=== PATIENT | male | born 1970 | race Caucasian/White ===

== ENCOUNTER 2016-10-27 16:45 | Emergency (ER) | payer OTHER, BC ==
[2016-10-27 17:07] VITALS: BP 144/85
[2016-10-27] MEDS ORDERED: Sodium Chloride 0.9% 1,000 ML ONE (17:43)
--- NOTE | 2016-10-27 17:50 | EDM.PDOC ---
ED HPI EYE COMPLAINT - General Chief Complaint: Eye Problems Stated Complaint: foreign body in right eye Time Seen by Provider: 10/27/16 17:20 Source: Reports: Patient History Limitations: Reports: No limitations - History of Present Illness INITIAL COMMENTS - FREE TEXT/NARRATIVE: Patient presents to ER with concerns of a possible foreign object in his left eye. 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 He did flush his eye out at work. Has noted a blister forming in his eye now. Denies blurred vision. Eye does feel irritated, has gotten very red. Is tearing. Patient's last known tetanus was in 2007. Symptom Onset Date: 10/27/16 Location: left eye Quality: Reports: Burning Severity: mild Associated Symptoms (Eye): Reports: burning, eyelid redness, orbital redness, FB sensation. Denies: decreased/blurred EXTENSION FORESTER (EYE): eyewash/irrigation - Related Data Allergies/ADRs: Allergies hydrocodone Allergy (Verified 10/27/16 16:58) Cannot Remember metronidazole [From Flagyl] Allergy (Verified 10/27/16 16:58) Cannot Remember oxycodone [Oxycodone] Allergy (Verified 10/27/16 16:58) Cannot Remember prednisone Allergy (Verified 10/27/16 16:58) Cannot Remember Home Meds: Ambulatory Orders Medication Instructions Recorded Confirmed Ciprofloxacin HCl 500 mg PO DAILY 08/10/15 10/27/16 Venlafaxine [Effexor] 37.5 mg PO BID 08/10/15 10/27/16 Lisinopril 10 mg PO DAILY 06/21/16 10/27/16 Atenolol 25 mg PO BID 06/23/16 10/27/16 Cholecalciferol (Vitamin D3) 5,000 units PO DAILY 08/08/16 10/27/16 [Vitamin D3] Magnesium Oxide [Magnesium] 500 mg PO DAILY 08/08/16 10/27/16 Albuterol Sulfate [Proair Hfa] 2 puff INH QID PRN 10/12/16 10/27/16 Amoxicillin 1,000 mg PO BID 10/27/16 10/27/16 Clarithromycin 500 mg PO BID 10/27/16 10/27/16 Lansoprazole [Lansoprazole] 30 mg PO BID 10/27/16 10/27/16 Past Medical History Cardiovascular History: Reports: Hypertension Respiratory History: Reports: Asthma, Sleep apnea Gastrointestinal History: Reports: Other (see below) Other Gastrointestinal History: ULCERATIVE COLITIS Musculoskeletal History: Reports: Fracture Psychiatric History: Reports: Anxiety, Depression Endocrine/Metabolic History: Reports: Obesity/BMI 30+ Hematologic History: Reports: Blood transfusion(s) - Past Surgical History HEENT Surgical History: Reports: Naso-sinus surgery GI Surgical History: Reports: Appendectomy, Colonoscopy, Other (see below) Other GI Surgeries/Procedures: HX OF COLOSTOMY AFTER REMOVAL OF 4FT OF BOWEL Musculoskeletal Surgical History: Reports: Arthroscopic procedure Social & Family History - Family History Family Medical History: Noncontributory Other Oncologic Family History: Aunts on mothers side had cancer - Tobacco Use Smoking Status *Q: Never Smoker Packs/Tins Daily: 1 - Caffeine Use Caffeine Use: Reports: Coffee Caffeine Use Comment: 1 cup coffee per day - Alcohol Use Days Per Week of Alcohol Use: 2 Number of Drinks Per Day: 3 Total Drinks Per Week: 6 - Recreational Drug Use Recreational Drug Use: No ED ROS GENERAL - Review of Systems Review Of Systems: ROS reveals no pertinent complaints other than HPI. ED EXAM GENERAL W FULL EYE - Physical Exam Exam: See Below Exam Limited By: No limitations General Appearance: alert, WD/WN, no apparent distress Eye Exam: left eye: conjunctival injection, foreign body, bilateral eye: EOMI, PERRL, other (Patient has obvious blister from 3-6 o'clock on the cornea. Does not extend to the iris. ) Visual acuity (R) 20/: 20 Visual acuity (L) 20/: 40 With Correction: Yes Eyelids: bilateral: normal appearance Conjunctiva & Sclera: left: conjunctival edema, foreign body (removed with eye wash), injected Cornea Exam: left: examined with flourescein, other (corneal blister noted) Extraocular Movements: bilateral: intact Pupils: normal accommodation Pupillary Size: bilateral: 4 mm Pupillary Reaction: bilateral: brisk ED EYE w/ Add Procedure - Eye Procedure Alcaine Drops Administered: Yes Eye FB Removal: removal w/ cotton swab Antibiotic Oinment/Drps Admin: left eye Course - Vital Signs Last Recorded V/S: Last Vital Signs Temp 99.0 F 10/27/16 17:03 Pulse 78 10/27/16 17:03 Resp 16 10/27/16 17:03 BP 144/85 H 10/27/16 17:03 Pulse Ox 93 L 10/27/16 17:03 - Orders/Labs/Meds Orders: Active Orders 24 hr Category Date Time Status Vaccines to be Administered [RC] PER UNIT ROUTINE Care 10/27/16 18:02 Ordered Meds: Medications Discontinued Medications Generic Name Dose Route Start Last Admin Trade Name David PRN Reason Stop Dose Admin Diphtheria/Tetanus/Acell Pertussis 0.5 ml 10/27/16 18:02 10/27/16 18:06 Adacel IM 10/27/16 18:03 0.5 ml .ONCE ONE Administration Sodium Chloride Confirm 10/27/16 17:43 10/27/16 18:07 Normal Saline Administered 10/27/16 17:44 Not Given Dose 1,000 mls @ as directed .ROUTE .STK-MED ONE - Re-Assessments/Exams Free Text/Narrative Re-Assessment/Exam: 10/27/16 7132- Did contact [facility] about specific treatment for this blister. Recommended antibiotic ointment or drops without steroids and contact optometry. We did irrigate the eye out and flushed more discharge. Visual acuity intact. Was able to reach Dr. Govea. Recommended polymixin ointment for treatment. Departure - Departure Time of Disposition: 18:12 Disposition: Home, Self-Care 01 Condition: good Clinical Impression: Blister of left cornea Referrals: Eh Chance MD [Primary Care Provider] - Forms: ED Department Discharge Additional Instructions: 1. Wear protective eye wear 2. Sunglasses for increased sensitivity 3. Polymixin ointment three times a day 4. Follow up with Dr. Govea on Sunday if able - My Orders Last 24 Hours: My Active Orders 10/27/16 18:02 Vaccines to be Administered [RC] PER UNIT ROUTINE - Assessment/Plan Last 24 Hours: My Active Orders 10/27/16 18:02 Vaccines to be Administered [RC] PER UNIT ROUTINE
[2016-10-27] MEDS ORDERED: Diphtheria,Pertussis(Acell),Tetanus Vaccine 0.5 ML Syringe IM ONE (18:02)
== END 2016-10-27 18:25 | disposition home or self-care (01) ==
LOC: CC.ED 16:45
DX: S05.8X2A Other injuries of left eye and orbit, initial encounter (principal); I10 Essential (primary) hypertension; J45.909 Unspecified asthma, uncomplicated; F41.9 Anxiety disorder, unspecified; F32.9 Major depressive disorder, single episode, unspecified; E66.9 Obesity, unspecified; Z23 Encounter for immunization; Z90.49 Acquired absence of other specified parts of digestive tract; Z88.5 Allergy status to narcotic agent; Z88.8 Allergy status to other drugs, medicaments and biological substances
CPT/HCPCS: 65220; 90471; 90715; 99282

== ENCOUNTER → 2017-09-12 | Day surgery (SDC) | payer BC ==
[~2017-09-12] MED LIST: Acetaminophen 325 MG Tab PO PRN; Bupivacaine 0.25% 10 ML SDV INJECT ONE; Dexamethasone 4 MG/ML SDV IV ONE; Ketorolac 30 MG/ML SDV IVPUSH ONE; Lactated Ringers 1,000 ML IV SCH; Lidocaine 1% 30 ML SDV INJECT ONE; Midazolam 1 MG/ML 2 ML SDV IV ONE; Ondansetron 4 MG/2 ML SDV IV ONE; Propofol 200 MG/20 ML SDV IV ONE; ceFAZolin 1 GM Vial IVPUSH ONE; fentaNYL 100 MCG/2 ML SDV IV ONE
[2017-09-12 15:27] VITALS: BP 138/80
--- NOTE | 2017-09-13 06:49 | OR ---
DATE OF OPERATION: 09/12/2017 PREOPERATIVE DIAGNOSIS: MASS, RIGHT CHEST WALL. POSTOPERATIVE DIAGNOSIS: LIPOMA, RIGHT CHEST WALL. SURGEON: Varun Parkinson MD PROCEDURE: EXCISION OF LIPOMA, RIGHT CHEST WALL. ANESTHESIA: IV sedation and 1% Xylocaine with 0.25% Marcaine. The size of the lipoma is about 3 cm in size. DESCRIPTION OF PROCEDURE: After the patient's chest wall was prepped, the patient was given sterile drapes. A 0.25% Marcaine with 1% Xylocaine was infiltrated all around above the mass. Skin incision was made. All the bleeding points were cauterized. There was about a 3 cm lipoma which was dissected out. All the bleeding points were cauterized and the skin was approximated with 4-0 Vicryl subcuticular sutures. The patient was given sterile dressing. He tolerated the procedure well and left the operating room in satisfactory condition. WILLIAMS/TORI /[id number]
== END ==
LOC: CC.SDS 11:45
PROVIDERS: ATTEND Surgery
DX: D17.1 Benign lipomatous neoplasm of skin and subcutaneous tissue of trunk (principal); F41.9 Anxiety disorder, unspecified; J45.909 Unspecified asthma, uncomplicated; N40.1 Benign prostatic hyperplasia with lower urinary tract symptoms; R35.1 Nocturia; F32.9 Major depressive disorder, single episode, unspecified; I10 Essential (primary) hypertension; K21.9 Gastro-esophageal reflux disease without esophagitis; E78.5 Hyperlipidemia, unspecified; G47.30 Sleep apnea, unspecified; E55.9 Vitamin D deficiency, unspecified; Z88.8 Allergy status to other drugs, medicaments and biological substances; Z79.82 Long term (current) use of aspirin; Z79.899 Other long term (current) drug therapy; Z87.891 Personal history of nicotine dependence
CPT/HCPCS: 21552; J0690; J1100; J1885; J2250; J2405; J2704; J3010; J7120

== ENCOUNTER 2019-06-09 10:29 | Emergency (ER) | payer OTHER ==
[2019-06-09 10:57] LABS: CHLORIDE,CL 104 mEq/L (98-106); SODIUM,NA 143 mEq/L (136-145)
[2019-06-09] MEDS: methylPREDNISolone Acetate 80 MG/ML SDV IM ONE (11:55)
--- NOTE | 2019-06-09 12:04 | EDM.PDOC ---
ED HPI GENERAL MEDICAL PROBLEM - General Chief Complaint: Chest Pain Stated Complaint: ER Time Seen by Provider: 06/09/19 10:50 Source of Information: Reports: Patient History Limitations: Reports: No Limitations - History of Present Illness INITIAL COMMENTS - FREE TEXT/NARRATIVE: Melanie is a 49 year old male who presents ambulatory to ER with complaints of intermittent chest pain. States it feels like a poking sensation to left anterior chest since . Patient denies any SOB at present time, but does get SOB with activity. States he does have a productive cough with history of asthma. Patient denies any jaw, shoulder, neck or arm pain, dizziness or weakness. States since Sunday he has been really tired and sleeping a lot. Currently not having any discomfort. blood pressure has been elevated at home as well. Admits when he does get the discomfort he is usually at rest, does not worsen with exertion. Left Anterior Chest Pain Score (Numeric/FACES): 5 - Related Data Allergies Allergy/AdvReac Type Severity Reaction Status Date / Time hydrocodone Allergy Cannot Verified 06/09/19 10:51 Remember metronidazole [From Flagyl] Allergy Cannot Verified 06/09/19 10:51 Remember oxycodone [Oxycodone] Allergy Cannot Verified 06/09/19 10:51 Remember prednisone Allergy Cannot Verified 06/09/19 10:51 Remember Home Meds: Home Meds Ciprofloxacin HCl 500 mg PO DAILY 08/10/15 [History] Venlafaxine [Effexor] 37.5 mg PO BID 08/10/15 [History] Atenolol 12.5 mg PO BID 06/23/16 [History] Cholecalciferol (Vitamin D3) [Vitamin D3] 5,000 units PO DAILY 08/08/16 [History ] Magnesium Oxide [Magnesium] 500 mg PO DAILY 08/08/16 [History] Albuterol Sulfate [Proair Hfa] 2 puff INH QID PRN 10/12/16 [History] Aspirin [Halfprin] 81 mg PO DAILY 09/12/17 [History] Lisinopril 40 mg PO BID 09/12/17 [History] Past Medical History Cardiovascular History: Reports: Hypertension Respiratory History: Reports: Asthma, Sleep Apnea Gastrointestinal History: Reports: Other (See Below) Other Gastrointestinal History: ULCERATIVE COLITIS Musculoskeletal History: Reports: Fracture Psychiatric History: Reports: Anxiety, Depression Endocrine/Metabolic History: Reports: Obesity/BMI 30+ Hematologic History: Reports: Blood Transfusion(s) - Past Surgical History HEENT Surgical History: Reports: Naso-Sinus Surgery GI Surgical History: Reports: Appendectomy, Colon, Colonoscopy, Other (See Below ) Musculoskeletal Surgical History: Reports: Arthroscopic Procedure Social & Family History - Family History Family Medical History: Noncontributory Other Oncologic Family History: Aunts on mothers side had cancer - Caffeine Use Caffeine Use: Reports: Coffee Caffeine Use Comment: 1 cup coffee per day ED ROS GENERAL - Review of Systems Review Of Systems: See Below Constitutional: Reports: Fatigue. Denies: Fever, Chills, Decreased Appetite HEENT: Reports: No Symptoms. Denies: Sinus Problem, Throat Pain Respiratory: Reports: Cough. Denies: Shortness of Breath, Wheezing Cardiovascular: Reports: Chest Pain, Blood Pressure Problem. Denies: Edema, Lightheadedness, Palpitations, Syncope GI/Abdominal: Reports: No Symptoms : Reports: No Symptoms Musculoskeletal: Reports: No Symptoms Skin: Reports: No Symptoms Neurological: Reports: No Symptoms. Denies: Dizziness, Headache, Difficulty Walking Psychiatric: Reports: No Symptoms ED EXAM, GENERAL - Physical Exam Exam: See Below Exam Limited By: No Limitations General Appearance: Alert, WD/WN, No Apparent Distress Ears: Normal External Exam, Normal Canal, Hearing Grossly Normal, Normal TMs Nose: Normal Inspection, Normal Mucosa, No Blood Throat/Mouth: Normal Inspection, Normal Lips, Normal Gums, Normal Oropharynx, Normal Voice, No Airway Compromise Head: Atraumatic, Normocephalic Neck: Normal Inspection, Supple Respiratory/Chest: No Respiratory Distress, Lungs Clear, Normal Breath Sounds, No Accessory Muscle Use, Other (nontender with palpation. ) Cardiovascular: Normal Peripheral Pulses, Regular Rate, Rhythm, No Edema, No Murmur GI/Abdominal: Normal Bowel Sounds, Soft, Non-Tender, No Organomegaly Back Exam: Normal Inspection Extremities: Normal Inspection, No Pedal Edema, Normal Capillary Refill Neurological: Alert, Oriented, Normal Cognition, No Motor/Sensory Deficits Psychiatric: Normal Affect, Normal Mood EKG INTERPRETATION EKG Date: 06/09/19 Rhythm: NSR Course - Vital Signs Last Recorded V/S: Last Vital Signs Temp 97.8 F 06/09/19 10:35 Pulse 94 06/09/19 10:35 Resp 20 06/09/19 10:35 BP 160/116 H 06/09/19 10:35 Pulse Ox 94 L 06/09/19 10:35 - Orders/Labs/Meds Orders: Active Orders 24 hr Category Date Time Status Chest 2V [CR] Routine Exams 06/09/19 Taken Labs: Laboratory Tests 06/09/19 06/09/19 06/09/19 Range/Units 10:36 10:36 10:36 WBC 6.8 (5.0-10.0) 10^3/uL RBC 5.01 (4.50-6.00) 10^6/uL Hgb 15.4 (14.0-18.0) g/dL Hct 44.7 (40.0-54.0) % MCV 89.2 (82.0-94.0) fL MCH 30.7 (27.0-32.0) pg MCHC 34.5 (33.0-38.0) g/dL RDW Coeff of My 13.2 (11.0-15.0) % Plt Count 240 (150-400) 10^3/uL Neut % (Auto) 43.0 (35-85) % Lymph % (Auto) 40.8 (10-55) % Davidson % (Auto) 11.8 (0-16) % Eos % (Auto) 3.8 (0-5) % Baso % (Auto) 0.6 (0-3) % Neut # (Auto) 2.92 (1.80-7.00) 10^3/uL Lymph # (Auto) 2.77 (1.00-4.80) 10^3/uL Davidson # (Auto) 0.80 (0.00-0.80) 10^3/uL Eos # (Auto) 0.26 (0.00-0.45) 10^3/uL Baso # (Auto) 0.04 10^3/uL PT 10.4 (9.7-12.3) SEC INR 1.01 (0.92-1.18) APTT 22.9 L (23.2-32.3) SEC D-Dimer, Quantitative 0.23 (0.00-0.50) Sodium 143 (136-145) mEq/L Potassium 4.2 (3.5-5.0) mEq/L Chloride 104 (98-106) mEq/L Carbon Dioxide 30 (21-32) mmol/L BUN 12 (7-18) mg/dL Creatinine 1.0 (0.7-1.3) mg/dL Est Cr Clr Drug Dosing TNP Estimated GFR (MDRD) > 60 (>=60) mL/min Glucose 97 (75-99) mg/dL Calcium 8.7 (8.4-10.1) mg/dL Lactate Dehydrogenase 219 H (100-190) U/L Creatine Kinase 171 (35-232) U/L Troponin I < 0.017 (0.00-0.06) ng/mL Meds: Medications Discontinued Medications Generic Name Dose Route Start Last Admin Trade Name Emmanuelq PRN Reason Stop Dose Admin Methylprednisolone Acetate 80 mg 06/09/19 11:48 Depo-Medrol IM 06/09/19 11:49 ONETIME ONE Departure - Departure Time of Disposition: 12:06 Disposition: Home, Self-Care 01 Clinical Impression: Atypical chest pain, Elevated blood pressure reading with diagnosis of hypertension Instructions: Nonspecific Chest Pain, [id number] Referrals: Asim Maya PA-C [Primary Care Provider] - Additional Instructions: 1) Start Amlodipine 5mg daily, called medication into pharmacy 2) Continue with all current other medications 3) May rest today 4) If pain worsens or any concerns at all, recommend reevaluation 5) Cardiac work up today was negative, recommend recheck in clinic on Sunday. - Problem List & Annotations (1) Atypical chest pain SNOMED Code(s): 411459379 Code(s): R07.89 - OTHER CHEST PAIN Status: Acute Current Visit: Yes (2) Elevated blood pressure reading with diagnosis of hypertension SNOMED Code(s): 81654483, 42566639 Code(s): I10 - ESSENTIAL (PRIMARY) HYPERTENSION Status: Acute Current Visit: Yes - My Orders Last 24 Hours: My Active Orders 06/09/19 Chest 2V [CR] Routine - Assessment/Plan Last 24 Hours: My Active Orders 06/09/19 Chest 2V [CR] Routine Plan: Cardiac work up was unremarkable. Chest x-ray stable, no acute cardiopulmonary disease noted. Will discharge home at this time. Patient has not had any discomfort while in ED. Will start Amlodipine and recommend recheck in clinic on Sunday/
[2019-06-09 14:28] VITALS: BP 143/97; PULSE 64
== END 2019-06-09 12:15 | disposition home or self-care (01) ==
LOC: CC.ED 10:29
DX: R07.89 Other chest pain (principal); I10 Essential (primary) hypertension; J45.909 Unspecified asthma, uncomplicated; F41.9 Anxiety disorder, unspecified; F32.9 Major depressive disorder, single episode, unspecified; E66.9 Obesity, unspecified; Z68.38 Body mass index [BMI] 38.0-38.9, adult; Z88.5 Allergy status to narcotic agent; Z88.8 Allergy status to other drugs, medicaments and biological substances; Z79.82 Long term (current) use of aspirin; Z79.899 Other long term (current) drug therapy
CPT/HCPCS: 36415; 71046; 80048; 82550; 83615; 84484; 85025; 85379; 85610; 85730; 93005; 96372; 99285; J1040

== ENCOUNTER 2019-07-05 08:21 | Emergency (ER) | payer OTHER ==
--- NOTE | 2019-07-05 08:57 | EDM.PDOC ---
ED HPI GENERAL MEDICAL PROBLEM - General Chief Complaint: Chest Pain Stated Complaint: chest pain Time Seen by Provider: 07/05/19 08:39 Source of Information: Reports: Patient History Limitations: Reports: No Limitations - History of Present Illness INITIAL COMMENTS - FREE TEXT/NARRATIVE: This patient is a 49 year old male that presents to the ER. 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 Patient reports the pain radiated numb pain to his left arm. Patient reports the pain lasted a "few" minutes, then went away. He reports then he went back to loading rails then the same pain occurred again. Patient reports this happened three times. Patient reports that he had this same chest pain a few weeks ago and was seen in the ER and discharged home. Patient reports he has not followed up since last ER visit. Patient denies n, v, d, f, shortness of breath, known injury. Onset: Today Onset Date: 07/05/19 Onset Time: 07:45 Duration: Minutes: ("few") Location: Reports: Chest Quality: Reports: Sharp Severity: Moderate Worsens with: Reports: Rest Associated Symptoms: Reports: Chest Pain. Denies: Confusion, Cough, cough w sputum, Diaphoresis, Fever/Chills, Headaches, Loss of Appetite, Malaise, Nausea/ Vomiting, Rash, Seizure, Shortness of Breath, Syncope, Weakness Right Upper Chest Pain Score (Numeric/FACES): 4 - Related Data Allergies Allergy/AdvReac Type Severity Reaction Status Date / Time hydrocodone Allergy Cannot Verified 07/05/19 08:36 Remember metronidazole [From Flagyl] Allergy Cannot Verified 07/05/19 08:36 Remember oxycodone [Oxycodone] Allergy Cannot Verified 07/05/19 08:36 Remember prednisone Allergy Cannot Verified 07/05/19 08:36 Remember Home Meds: Home Meds Ciprofloxacin HCl 500 mg PO DAILY 08/10/15 [History] Venlafaxine [Effexor] 37.5 mg PO BID 08/10/15 [History] Atenolol 12.5 mg PO BID 06/23/16 [History] Cholecalciferol (Vitamin D3) [Vitamin D3] 5,000 units PO DAILY 08/08/16 [History ] Magnesium Oxide [Magnesium] 500 mg PO DAILY 08/08/16 [History] Albuterol Sulfate [Proair Hfa] 2 puff INH QID PRN 10/12/16 [History] Aspirin [Halfprin] 81 mg PO DAILY 09/12/17 [History] Lisinopril 40 mg PO BID 09/12/17 [History] amLODIPine [Norvasc] 5 mg PO DAILY 07/05/19 [History] Past Medical History Cardiovascular History: Reports: Hypertension Respiratory History: Reports: Asthma, Sleep Apnea Gastrointestinal History: Reports: Other (See Below) Other Gastrointestinal History: ULCERATIVE COLITIS Musculoskeletal History: Reports: Fracture Psychiatric History: Reports: Anxiety, Depression Endocrine/Metabolic History: Reports: Obesity/BMI 30+ Hematologic History: Reports: Blood Transfusion(s) - Past Surgical History HEENT Surgical History: Reports: Naso-Sinus Surgery GI Surgical History: Reports: Appendectomy, Colon, Colonoscopy, Other (See Below ) Musculoskeletal Surgical History: Reports: Arthroscopic Procedure Social & Family History - Family History Cardiac: Reports: Other (See Below) (Does not ercall what type of heart problems , but reports aunts and uncles have them. Not his mother. Does not know about father.) Other Oncologic Family History: Aunts on mothers side had cancer - Tobacco Use Smoking Status *Q: Never Smoker - Caffeine Use Caffeine Use: Reports: Coffee Caffeine Use Comment: 1 cup coffee per day - Recreational Drug Use Recreational Drug Use: No ED ROS GENERAL - Review of Systems Review Of Systems: See Below Constitutional: Reports: No Symptoms HEENT: Reports: No Symptoms Respiratory: Reports: No Symptoms. Denies: Shortness of Breath, Wheezing, Pleuritic Chest Pain, Cough, Sputum Cardiovascular: Reports: Chest Pain. Denies: Dyspnea on Exertion, Edema, Lightheadedness, Orthopnea, Palpitations, Syncope Endocrine: Reports: No Symptoms GI/Abdominal: Reports: No Symptoms. Denies: Abdominal Pain, Diarrhea, Nausea, Vomiting : Reports: No Symptoms Musculoskeletal: Reports: No Symptoms Skin: Reports: No Symptoms Neurological: Reports: No Symptoms. Denies: Confusion, Dizziness, Headache, Syncope, Weakness Psychiatric: Reports: No Symptoms Hematologic/Lymphatic: Reports: No Symptoms Immunologic: Reports: No Symptoms ED EXAM, GENERAL - Physical Exam Exam: See Below Exam Limited By: No Limitations General Appearance: Alert, WD/WN, No Apparent Distress Eye Exam: Bilateral Eye: Normal Inspection, PERRL Ears: Normal External Exam, Normal Canal, Hearing Grossly Normal, Normal TMs Ear Exam: Bilateral Ear: Auricle Normal, Canal Normal, TM normal Nose: Normal Inspection, Normal Mucosa, No Blood Throat/Mouth: Normal Inspection, Normal Lips, Normal Teeth, Normal Gums, Normal Oropharynx, Normal Voice, No Airway Compromise Head: Normocephalic, Sinus Tenderness Neck: Normal Inspection, Supple, Non-Tender, Full Range of Motion Respiratory/Chest: No Respiratory Distress, Lungs Clear, Normal Breath Sounds, No Accessory Muscle Use, Chest Non-Tender Cardiovascular: Normal Peripheral Pulses, Regular Rate, Rhythm, No Edema, No Gallop, No JVD, No Murmur, No Rub Peripheral Pulses: 2+: Radial (L), Radial (R), Posterior Tibial (L), Posterior Tibial (R) GI/Abdominal: Normal Bowel Sounds, Soft, Non-Tender, No Organomegaly, No Distention, No Abnormal Bruit, No Mass, Pelvis Stable (Male) Exam: Deferred Rectal (Males) Exam: Deferred Back Exam: Normal Inspection, Full Range of Motion Extremities: Normal Inspection, Normal Range of Motion, Non-Tender, No Pedal Edema, Normal Capillary Refill Neurological: Alert, Oriented, Normal Gait, No Motor/Sensory Deficits Psychiatric: Normal Affect, Normal Mood Skin Exam: Warm, Dry, Intact, Normal Color, No Rash Lymphatic: No Adenopathy EKG INTERPRETATION EKG Date: 07/05/19 Time: 08:26 Rhythm: NSR Rate (Beats/Min): 65 [place]: Normal P-Wave: Present QRS: Normal ST-T: Normal QT: Normal Comparison: No Change Course - Vital Signs Last Recorded V/S: Last Vital Signs Temp 98.7 F 07/05/19 11:58 Pulse 70 07/05/19 11:58 Resp 18 07/05/19 11:58 BP 152/79 H 07/05/19 11:58 Pulse Ox 94 L 07/05/19 11:58 - Orders/Labs/Meds Orders: Active Orders 24 hr Category Date Time Status Communication Order [RC] STAT Care 07/05/19 09:45 Active EKG Documentation Completion [RC] STAT Care 07/05/19 08:40 Active Chest 2V [CR] Routine Exams 07/05/19 Taken ECG Stress Exercise [OM.PC] Routine Oth 07/07/19 08:00 Ordered Labs: Laboratory Tests 07/05/19 07/05/19 07/05/19 Range/Units 08:37 08:37 08:37 WBC 6.3 (5.0-10.0) 10^3/uL RBC 4.86 (4.50-6.00) 10^6/uL Hgb 15.1 (14.0-18.0) g/dL Hct 42.8 (40.0-54.0) % MCV 88.1 (82.0-94.0) fL MCH 31.1 (27.0-32.0) pg MCHC 35.3 (33.0-38.0) g/dL RDW Coeff of My 12.8 (11.0-15.0) % Plt Count 220 (150-400) 10^3/uL Neut % (Auto) 47.4 (35-85) % Lymph % (Auto) 41.0 (10-55) % [place] % (Auto) 7.1 (0-16) % Eos % (Auto) 4.0 (0-5) % Baso % (Auto) 0.5 (0-3) % Neut # (Auto) 2.99 (1.80-7.00) 10^3/uL Lymph # (Auto) 2.59 (1.00-4.80) 10^3/uL [place] # (Auto) 0.45 (0.00-0.80) 10^3/uL Eos # (Auto) 0.25 (0.00-0.45) 10^3/uL Baso # (Auto) 0.03 10^3/uL PT 10.4 (9.7-12.3) SEC INR 1.01 (0.92-1.18) APTT 23.2 (23.2-32.3) SEC Sodium 143 (136-145) mEq/L Potassium 4.3 (3.5-5.0) mEq/L Chloride 105 (98-106) mEq/L Carbon Dioxide 26 (21-32) mmol/L BUN 16 (7-18) mg/dL Creatinine 1.3 (0.7-1.3) mg/dL Est Cr Clr Drug Dosing 70.97 mL/min Estimated GFR (MDRD) 59 L (>=60) mL/min Glucose 118 H (75-99) mg/dL Calcium 9.2 (8.4-10.1) mg/dL Magnesium 1.7 L (1.8-2.4) mg/dL Total Bilirubin 0.4 (0.0-1.0) mg/dL AST 25 (15-37) U/L ALT 37 (12-78) U/L Alkaline Phosphatase 57 (46-116) U/L Lactate Dehydrogenase 244 H (100-190) U/L Creatine Kinase 356 H (35-232) U/L Troponin I < 0.017 (0.00-0.06) ng/mL C-Reactive Protein < 0.2 L (0.2-0.8) mg/dL NT-Pro-B Natriuret Pep 66 (0-1000) pg/mL Total Protein 7.3 (6.4-8.2) g/dL Albumin 4.0 (3.4-5.0) g/dL 07/05/19 Range/Units 11:40 WBC (5.0-10.0) 10^3/uL RBC (4.50-6.00) 10^6/uL Hgb (14.0-18.0) g/dL Hct (40.0-54.0) % MCV (82.0-94.0) fL MCH (27.0-32.0) pg MCHC (33.0-38.0) g/dL RDW Coeff of My (11.0-15.0) % Plt Count (150-400) 10^3/uL Neut % (Auto) (35-85) % Lymph % (Auto) (10-55) % [place] % (Auto) (0-16) % Eos % (Auto) (0-5) % Baso % (Auto) (0-3) % Neut # (Auto) (1.80-7.00) 10^3/uL Lymph # (Auto) (1.00-4.80) 10^3/uL [place] # (Auto) (0.00-0.80) 10^3/uL Eos # (Auto) (0.00-0.45) 10^3/uL Baso # (Auto) 10^3/uL PT (9.7-12.3) SEC INR (0.92-1.18) APTT (23.2-32.3) SEC Sodium (136-145) mEq/L Potassium (3.5-5.0) mEq/L Chloride (98-106) mEq/L Carbon Dioxide (21-32) mmol/L BUN (7-18) mg/dL Creatinine (0.7-1.3) mg/dL Est Cr Clr Drug Dosing mL/min Estimated GFR (MDRD) (>=60) mL/min Glucose (75-99) mg/dL Calcium (8.4-10.1) mg/dL Magnesium (1.8-2.4) mg/dL Total Bilirubin (0.0-1.0) mg/dL AST (15-37) U/L ALT (12-78) U/L Alkaline Phosphatase (46-116) U/L Lactate Dehydrogenase (100-190) U/L Creatine Kinase (35-232) U/L Troponin I < 0.017 (0.00-0.06) ng/mL C-Reactive Protein (0.2-0.8) mg/dL NT-Pro-B Natriuret Pep (0-1000) pg/mL Total Protein (6.4-8.2) g/dL Albumin (3.4-5.0) g/dL Meds: Medications Discontinued Medications Generic Name Dose Route Start Last Admin Trade Name Freq PRN Reason Stop Dose Admin Aspirin 324 mg 07/05/19 08:58 07/05/19 08:25 Aspirin PO 07/05/19 08:59 324 mg ONETIME ONE Administration - Radiology Interpretation Free Text/Narrative:: CXR: No infiltrate, no cardiomegaly, no pulmonary edema. - Re-Assessments/Exams Free Text/Narrative Re-Assessment/Exam: 07/05/19 12:51 Patient has had one episode of his chest pain here that he reports only lasted 3 seconds and resolved completely. Patient reports he has 0/10 pain right now. He denies cp, n, shortness of breath. I will discharge the patient home, he has negative troponins, negative symptoms now. I will schedule in a treadmill stress test to be done this week and followup with PCP. He is educated to return if Chest pain returns, any symptoms develop, or any concerns. He voices back understanding. Departure - Departure Time of Disposition: 12:48 Disposition: Home, Self-Care 01 Condition: Fair Clinical Impression: Atypical chest pain Instructions: Nonspecific Chest Pain, Cardiac-Specific Troponin I and T Test, Exercise Stress Test, [id number] Referrals: Asim Maya PA-C [Primary Care Provider] - Forms: ED Department Discharge Additional Instructions: Followup with your primary care provider on Sunday with Krystian for Stress Test Return to the ER for worsening of condition or any emergent concerns Stress Test to be done this week Rest until cleared by your primary care provider on Sunday - My Orders Last 24 Hours: My Active Orders 07/05/19 Chest 2V [CR] Routine 07/05/19 08:40 EKG Documentation Completion [RC] STAT 07/05/19 09:45 Communication Order [RC] STAT 07/07/19 08:00 ECG Stress Exercise [OM.PC] Routine - Assessment/Plan Last 24 Hours: My Active Orders 07/05/19 Chest 2V [CR] Routine 07/05/19 08:40 EKG Documentation Completion [RC] STAT 07/05/19 09:45 Communication Order [RC] STAT 07/07/19 08:00 ECG Stress Exercise [OM.PC] Routine Plan: PLEASE SEE RN NOTE FOR PFSH.
[2019-07-05] MEDS ORDERED: Aspirin 81 MG Tab.Chew PO ONE (08:58)
[2019-07-05 09:01] LABS: CHLORIDE,CL 105 mEq/L (98-106); SODIUM,NA 143 mEq/L (136-145)
[2019-07-05 12:50] VITALS: BP 152/79; PULSE 70
== END 2019-07-05 13:15 | disposition home or self-care (01) ==
LOC: CC.ED 08:21
DX: R07.89 Other chest pain (principal); J45.909 Unspecified asthma, uncomplicated; E66.9 Obesity, unspecified; F32.9 Major depressive disorder, single episode, unspecified; Z88.5 Allergy status to narcotic agent; Z88.1 Allergy status to other antibiotic agents; Z88.8 Allergy status to other drugs, medicaments and biological substances; Z79.82 Long term (current) use of aspirin; Z68.37 Body mass index [BMI] 37.0-37.9, adult
CPT/HCPCS: 36415; 71046; 80053; 82550; 83615; 83735; 83880; 84484; 85025; 85610; 85730; 86140; 93005; 99285-25; A9270-GY

== ENCOUNTER 2020-05-04 18:27 | Emergency (ER) | payer BC ==
[2020-05-04 19:14] LABS: CHLORIDE,CL 102 mEq/L (98-106); SODIUM,NA 138 mEq/L (136-145)
--- NOTE | 2020-05-04 19:21 | EDM.PDOC ---
ED HPI GENERAL MEDICAL PROBLEM - General Chief Complaint: Respiratory Problem Stated Complaint: Shortness of Breat COVID+ Time Seen by Provider: 05/04/20 18:27 Source of Information: Reports: Patient History Limitations: Reports: No Limitations - History of Present Illness INITIAL COMMENTS - FREE TEXT/NARRATIVE: Melanie is a 50 yo male who presents to the ED via private vehicle with complaints of shortness of breath. He states he was diagnosed with COVID on the 30 of April. Admits he works at [employer] in [place] and had mass testing of the facility on the 28 of April. He worked on Sunday, the day after testing, and admits ended up going home that morning with a severe headache. States he was told then on Sunday he was positive for Covid. Has history of asthma and had been doing well up until Sunday. Started to have some shortness of breath and body aches. Started using his albuterol inhaler on Sunday though. Admits he had some left over cough medicine, which didn't help with the cough. Today he did get albuterol nebs but didn't get any relief with it. Feels shortness of breath is progressively getting worse today and has difficulty walking any short distance. Body aches continue to be severe to the point of bringing him to tears. Has been taking 1500mg of Tylenol every 4-6 hours for the body aches. Didn't take any ibuprofen as he didn't know if he could. Has lost sense of taste and smell. Admits to allergy to prednisone as he breaks out in hives and gets short of breath. "all over" Pain Score (Numeric/FACES): 5 - Related Data Allergies Allergy/AdvReac Type Severity Reaction Status Date / Time hydrocodone Allergy Cannot Verified 07/08/19 14:49 Remember metronidazole [From Flagyl] Allergy Cannot Verified 07/08/19 14:49 Remember oxycodone [Oxycodone] Allergy Cannot Verified 07/08/19 14:49 Remember prednisone Allergy Cannot Verified 07/08/19 14:49 Remember Home Meds: Home Meds Ciprofloxacin HCl 500 mg PO DAILY 08/10/15 [History] Venlafaxine [Effexor] 37.5 mg PO BID 08/10/15 [History] atenoloL [Atenolol] 12.5 mg PO BID 06/23/16 [History] Cholecalciferol (Vitamin D3) [Vitamin D3] 5,000 units PO DAILY 08/08/16 [History] Magnesium Oxide [Magnesium] 500 mg PO DAILY 08/08/16 [History] Aspirin [Halfprin] 81 mg PO DAILY 09/12/17 [History] Lisinopril 20 mg PO BID 09/12/17 [History] amLODIPine [Norvasc] 5 mg PO DAILY 07/05/19 [History] Albuterol [Ventolin HFA] 2 puff INH QID PRN 07/08/19 [History] Past Medical History Cardiovascular History: Reports: Hypertension Respiratory History: Reports: Asthma, Sleep Apnea Gastrointestinal History: Reports: Other (See Below) Other Gastrointestinal History: ULCERATIVE COLITIS Musculoskeletal History: Reports: Fracture Psychiatric History: Reports: Anxiety, Depression Endocrine/Metabolic History: Reports: Obesity/BMI 30+ Hematologic History: Reports: Blood Transfusion(s) - Infectious Disease History Infectious Disease History: Reports: Novel Coronavirus - Past Surgical History HEENT Surgical History: Reports: Naso-Sinus Surgery GI Surgical History: Reports: Appendectomy, Colon, Colonoscopy, Other (See Below) Musculoskeletal Surgical History: Reports: Arthroscopic Procedure Social & Family History - Family History Family Medical History: Noncontributory Cardiac: Reports: Other (See Below) Other Oncologic Family History: Aunts on mothers side had cancer - Tobacco Use Smoking Status *Q: Former Smoker Used Tobacco, but Quit: Yes Month/Year Tobacco Last Used: 2004 - Caffeine Use Caffeine Use: Reports: None Caffeine Use Comment: 1 cup coffee per day - Recreational Drug Use Recreational Drug Use: No ED ROS GENERAL - Review of Systems Review Of Systems: See Below Constitutional: Reports: Fever, Chills, Weakness, Fatigue. Denies: Decreased Appetite HEENT: Reports: Rhinitis, Sinus Problem. Denies: Ear Pain, Throat Pain, Throat Swelling Respiratory: Reports: Shortness of Breath, Wheezing, Cough. Denies: Sputum Cardiovascular: Reports: Chest Pain, Lightheadedness. Denies: Blood Pressure Problem, Palpitations GI/Abdominal: Reports: Abdominal Pain, Nausea. Denies: Bloody Stool, Constipation, Diarrhea, Vomiting : Reports: No Symptoms Musculoskeletal: Reports: Muscle Stiffness, Other (severe body aches) Skin: Reports: No Symptoms. Denies: Rash Neurological: Reports: Headache. Denies: Confusion, Syncope Psychiatric: Reports: No Symptoms ED EXAM, GENERAL - Physical Exam Exam: See Below Exam Limited By: No Limitations General Appearance: Alert, WD/WN, No Apparent Distress Eye Exam: Bilateral Eye: Normal Inspection Ears: Normal External Exam, Normal Canal, Hearing Grossly Normal, Normal TMs Nose: Normal Inspection, Clear Rhinorrhea Throat/Mouth: Normal Inspection, Normal Lips, Normal Teeth, Normal Gums, Normal Oropharynx, Normal Voice, No Airway Compromise Head: Atraumatic, Normocephalic Neck: Normal Inspection, Supple Respiratory/Chest: Lungs Clear, Normal Breath Sounds, No Accessory Muscle Use. No: Respiratory Distress Cardiovascular: Regular Rate, Rhythm, No Edema, No Murmur GI/Abdominal: Normal Bowel Sounds, Soft, Non-Tender, No Organomegaly, No Mass Extremities: Normal Inspection, No Pedal Edema, Arm Pain, Leg Pain Neurological: Alert, Oriented, Normal Cognition Psychiatric: Normal Affect, Normal Mood Skin Exam: Dry, Intact, Normal Color, No Rash, Increased Warmth Course - Vital Signs Last Recorded V/S: Last Vital Signs Temp 101.1 F H 05/04/20 20:32 Pulse 92 05/04/20 20:32 Resp 18 05/04/20 20:32 BP 105/64 05/04/20 20:32 Pulse Ox 95 05/04/20 20:32 - Orders/Labs/Meds Orders: Active Orders 24 hr Category Date Time Status Chest 2V [CR] Routine Exams 05/04/20 Taken Labs: Laboratory Tests 05/04/20 05/04/20 05/04/20 Range/Units 18:55 18:55 18:55 WBC 4.8 L (5.0-10.0) 10^3/uL RBC 4.46 L (4.50-6.00) 10^6/uL Hgb 13.7 L (14.0-18.0) g/dL Hct 40.0 (40.0-54.0) % MCV 89.7 (82.0-94.0) fL MCH 30.7 (27.0-32.0) pg MCHC 34.3 (33.0-38.0) g/dL RDW Coeff of My 13.3 (11.0-15.0) % Plt Count 123 L (150-400) 10^3/uL Neut % (Auto) 69.8 (35-85) % Lymph % (Auto) 19.6 (10-55) % [place] % (Auto) 10.2 (0-16) % Eos % (Auto) 0.2 (0-5) % Baso % (Auto) 0.2 (0-3) % Neut # (Auto) 3.35 (1.80-7.00) 10^3/uL Lymph # (Auto) 0.94 L (1.00-4.80) 10^3/uL [place] # (Auto) 0.49 (0.00-0.80) 10^3/uL Eos # (Auto) 0.01 (0.00-0.45) 10^3/uL Baso # (Auto) 0.01 10^3/uL D-Dimer, Quantitative 0.40 (0.00-0.50) Sodium 138 (136-145) mEq/L Potassium 4.0 (3.5-5.0) mEq/L Chloride 102 (98-106) mEq/L Carbon Dioxide 31 (21-32) mmol/L BUN 14 (7-18) mg/dL Creatinine 1.1 (0.7-1.3) mg/dL Est Cr Clr Drug Dosing 80.34 mL/min Estimated GFR (MDRD) > 60 (>=60) mL/min Glucose 171 H D (75-99) mg/dL Calcium 8.6 (8.4-10.1) mg/dL Magnesium 1.8 (1.8-2.4) mg/dL Total Bilirubin 0.3 (0.0-1.0) mg/dL AST 38 H (15-37) U/L ALT 53 (12-78) U/L Alkaline Phosphatase 46 (46-116) U/L Total Protein 6.7 (6.4-8.2) g/dL Albumin 3.4 (3.4-5.0) g/dL Departure - Departure Time of Disposition: 20:40 Disposition: DC/Tfer to Acute Hospital 02 Clinical Impression: COVID-19, Hypoxia - Discharge Information Referrals: Asim Maya PA-C [Primary Care Provider] - Forms: ED Department Discharge Sepsis Event Note (ED) - Evaluation Sepsis Screening Result: No Definite Risk - Focused Exam Vital Signs: Vital Signs Temp Pulse Resp BP Pulse Ox 05/04/20 20:32 101.1 F H 92 18 105/64 95 05/04/20 18:28 101.3 F H 104 H 24 H 138/77 89 L - Problem List & Annotations (1) COVID-19 SNOMED Code(s): 301803029 Code(s): U07.1 - COVID-19 Status: Acute Current Visit: Yes (2) Hypoxia SNOMED Code(s): 052792507 Code(s): R09.02 - HYPOXEMIA Status: Acute Current Visit: Yes - My Orders Last 24 Hours: My Active Orders 05/04/20 Chest 2V [CR] Routine - Assessment/Plan Last 24 Hours: My Active Orders 05/04/20 Chest 2V [CR] Routine Plan: Melanie has been stable on 3 Liters of O2 via Nasal Canula. D/t patients history with asthma and worsening of symptoms discussed transferring to higher level of care, which patient was in agreement. Consulted with Dr. Woodard at [facility] in [place] who kindly accepted transfer. Patient is stable and verbalizes understanding. Discussed risks and benefits of transfer with Melanie. Risks of transfer included worsening of condition, MVA and . Benefits of transfer included specialty care and interventions not provided at this local facility. risks of non- transfer included lack of specialized treatment/interventions, hospitalist, worsening of condition, . Benefits of non-transfer included staying close to home. Pt verbalized understanding and is in agreement with transfer.
[2020-05-04 20:34] VITALS: BP 105/64; PULSE 92
== END 2020-05-04 22:01 ==
LOC: CC.ED 18:27
DX: U07.1 COVID-19 (principal); R09.02 Hypoxemia; I10 Essential (primary) hypertension; J45.909 Unspecified asthma, uncomplicated; F41.9 Anxiety disorder, unspecified; F32.9 Major depressive disorder, single episode, unspecified; E66.9 Obesity, unspecified; Z87.891 Personal history of nicotine dependence; Z88.5 Allergy status to narcotic agent; Z88.8 Allergy status to other drugs, medicaments and biological substances; Z79.82 Long term (current) use of aspirin; Z79.899 Other long term (current) drug therapy; Z68.39 Body mass index [BMI] 39.0-39.9, adult
CPT/HCPCS: 36415; 71046; 80053; 83735; 85025; 85379; 99285-25

== ENCOUNTER 2024-04-04 17:31 | Emergency (ER) | payer SELFPAY ==
[2024-04-04 17:40] VITALS: BP 149/95; PULSE 92
[2024-04-04] MEDS: Fluorescein 1 MG Ophth Strip EYELF ONE (18:03)
[2024-04-04] MEDS: Tetracaine HCl/PF 0.5% 4 ML Bottle EYELF ONE (18:03)
[2024-04-04] MEDS: Distilled Water Ophth Irrig Soln 120 ML Bottle EYELF ONE (18:04)
[2024-04-04] MEDS: Dexamethasone/Tobramycin 0.1-0.3% Ophth Susp 2.5 ML Bottle EYELF SCH (18:17)
== END 2024-04-04 18:27 | disposition home or self-care (01) ==
LOC: CC.ED 17:31
DX: H15.002 Unspecified scleritis, left eye (principal); I10 Essential (primary) hypertension; F17.210 Nicotine dependence, cigarettes, uncomplicated; Z88.5 Allergy status to narcotic agent; Z88.8 Allergy status to other drugs, medicaments and biological substances; Z79.82 Long term (current) use of aspirin; Z79.899 Other long term (current) drug therapy; Z79.51 Long term (current) use of inhaled steroids
CPT/HCPCS: 99283

== ENCOUNTER 2024-10-25 17:09 | Emergency (ER) | payer SELFPAY ==
[2024-10-25 17:25] VITALS: BP 128/77; PULSE 91
[2024-10-25] MEDS: cefTRIAXone 2 GM Vial IM ONE (17:40)
[2024-10-25] MEDS: Lidocaine 1% 5 ML VIAL INJECT ONE (17:40)
[2024-10-25] MEDS: Take Home: Amoxicillin/Clavulanate K 875-125 MG Tab, 2 Tab Pack PO ONE (17:46)
== END 2024-10-25 17:50 | disposition home or self-care (01) ==
LOC: CC.ED 17:09
DX: J18.9 Pneumonia, unspecified organism (principal); I10 Essential (primary) hypertension; J45.909 Unspecified asthma, uncomplicated; Z88.5 Allergy status to narcotic agent; Z88.8 Allergy status to other drugs, medicaments and biological substances; Z79.899 Other long term (current) drug therapy; Z79.82 Long term (current) use of aspirin; Z79.51 Long term (current) use of inhaled steroids
CPT/HCPCS: 96372; 99284; A9270-GY; J0696